=== PATIENT | male | born 1935 | race Caucasian/White ===

== ENCOUNTER 2016-08-06 14:56 | Emergency (ER) | payer MEDICARE, BC ==
[~2016-08-06] VITALS: Ht 177.8 cm; Wt 74.0 kg
[~2016-08-06 14:56] MED LIST: AMLO5 PO; ASPI81TA82 PO; AVOD0.5C PO; BENZ100 PO; DIOV80TA4 PO; GLIP5 PO; METF850T PO; NEXI10GR PO; PRAV10 PO; TUSSSUS PO; ZITH250T PO
[2016-08-06 15:02] VITALS: BP 147/67; PULSE 82; RESP 20; TEMP 98.7; O2SAT 100
[2016-08-06] MEDS ORDERED: NORV2.5T PO (15:20)
[2016-08-06] MEDS ORDERED: VITA500030 CHEW (15:25)
[2016-08-06] MEDS ORDERED: DIOV160T6 PO (15:25)
[2016-08-06] MEDS ORDERED: ASPI81CH37 CHEW (15:25)
[2016-08-06] MEDS ORDERED: NEXI40CA PO (15:25)
[2016-08-06] MEDS ORDERED: AVOD0.5C PO (15:25)
[2016-08-06] MEDS ORDERED: LANTUS2P SQ (15:25)
[2016-08-06] MEDS ORDERED: PRAV20TA2 PO (15:25)
[2016-08-06] MEDS ORDERED: [UNRECOGNIZED DRUG - CODE] (15:25)
--- NOTE | 2016-08-06 15:28 | PD ---
HPI Chief Complaint: Flank/Kidney Pain Time Seen by Provider: 15:14 Travel History International Travel<30 days: No Contact w/Intl Traveler<30days: No Traveled to known affect area: No History of Present Illness HPI He had some right flank pain yesterday evening. No injury or fever or vomiting or hematuria. He has history of chronic right sided stone that his urologist follows with CT scan on a yearly basis. Today he is asymptomatic but wanted to get it checked out. Having no pain now. Symptoms severity is mild. 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) Arthritis: Yes Asthma: No Autoimmune Disease: No Blood Disorders: No Heart Rhythm Problems: No Cancer: No Cardiovascular Problems: Yes (PERICARDITIS 2011) High Cholesterol: No Chest Pain: No Congestive Heart Failure: No COPD: No Cerebrovascular Accident: No Diabetes: Yes Patient Takes Glucophage: No Diminished Hearing: Yes (BILAT) Endocrine: Yes Gastrointestinal Disorders: Yes (ACID REFLUX ) GERD: Yes Glaucoma: No Genitourinary: Yes (ENLARGED PROSTATE; POST TURP; KIDNEY STONES ) Headaches: No Hepatitis: No Hiatal Hernia: No Hypertension: Yes Immune Disorder: No Implanted Vascular Access Dvce: Yes (TITANIUM LEFT KNEE) Kidney Stones: Yes Medical other: Yes (RIGHT RENAL ARTERY ANEURYSM; ACUTE GASTRITIS 2009) Musculoskeletal: Yes (OSTEOARTHRITIS; RIGHT HAMSTRING PAIN; RIGHT KNEE PAIN) Neurologic: Yes (OCCAS VERTIGO ) Psychiatric: No Reproductive: No Respiratory: No Immunizations Current: Yes Myocardial Infarction: No Renal Failure: No Seizures: No Sleep Apnea: Yes Thyroid Disease: No Ulcer: Yes PNEUMOCCOCAL Vaccine (Year): 2009 Past Surgical History Abdominal Surgery: Yes (APPY; CHOLECY ) AICD: No Appendectomy: Yes Body Medical Devices: LEFT KNEE Cardiac Surgery: No Cholecystectomy: Yes Ear Surgery: No Endocrine Surgery: No Eye Surgery: No Genitourinary Surgery: Yes (LITHOTRIPSY X 3; TURP 2002) Joint Replacement: Yes (LEFT KNEE) Neurologic Surgery: No Oral Surgery: Yes (PERIDONTAL SURGERY ) Pacemaker: No Thoracic Surgery: No Other Surgery: Yes Social History Alcohol Use: No Tobacco Use: No Substance Use: No Allergies-Medications (Allergen,Severity, Reaction): Coded Allergies: Lortab (Verified Allergy, Severe, Nausea/Vomiting, 08/06/16) NAUSEA/VOMITTING Percocet (Verified Allergy, Mild, 08/06/16) NAUSEA/VOMITTING Codeine (Verified Adverse Reaction, Intermediate, Nausea/Vomiting, 08/06/16) Reported Meds & Prescriptions Reported Meds & Active Scripts Active Reported E1000 (Vitamin E) 1,000 Unit Cap Vitamin D3 (Cholecalciferol) 5,000 Unit Chew 5,000 Units CHEW DAILY Lantus Inj (Insulin Glargine) 1,000 Unit/10 Ml Vial 17 Units SQ HS Aspirin Low Dose (Aspirin) 81 Mg Chew 81 Mg CHEW DAILY Pravastatin 20 Mg Tab 20 Mg PO DAILY Nexium (Esomeprazole DR) 40 Mg Capdr 40 Mg PO DAILY Avodart (Dutasteride) 0.5 Mg Cap 0.5 Mg PO DAILY Diovan (Valsartan) 160 Mg Tab 160 Mg PO DAILY Norvasc (Amlodipine Besylate) 2.5 Mg Tab 2.5 Mg PO DAILY Review of Systems General / Constitutional: No: Fever HENT: No: Headaches Cardiovascular: No: Chest Pain or Discomfort Respiratory: No: Cough Physical Exam Narrative GASTROINTESTINAL: Abdomen soft, non-tender, nondistended. Positive bowel sounds. No hepato-splenomegaly, or palpable masses. No guarding. SKIN: Inspection shows no rash or ulcers. Palpation shows no induration or nodules. Back: No midline or CVA tenderness NEUROLOGICAL: Awake and alert. Pupils are equal round and reactive. Motor and sensory grossly within normal limits. Five out of 5 muscle strength in all muscle groups. Normal speech. Data Data Last Documented VS Vital Signs Date Time Temp Pulse Resp B/P Pulse Ox O2 Delivery O2 Flow Rate FiO2 08/06/16 15:02 98.7 82 20 147/67 100 Orders Urinalysis - C+S If Indicated (08/06/16 15:21) Labs Laboratory Tests Test 08/06/16 15:33 Urine Collection Type CLEAN CATCH Urine Color YELLOW Urine Turbidity CLEAR Urine pH 7.0 Urine Specific [place] 1.024 Urine Protein NEG mg/dL Urine Glucose (UA) 1000 OR GREATER mg/dL Urine Ketones NEG mg/dL Urine Occult Blood TRACE Urine Nitrite NEG Urine Bilirubin NEG Urine Leukocyte Esterase NEG Urine WBC 0-2 /hpf Urine Squamous Epithelial 0-5 /hpf Cells Microscopic Urinalysis Comment CULT NOT INDICATED MDM Medical Decision Making Medical Screen Exam Complete: Yes Emergency Medical Condition: Yes Medical Record Reviewed: Yes Differential Diagnosis Sciatica, pyelonephritis, kidney stone Narrative Course I have reviewed the patient's electronic medical record. Urinalysis is normal except for glucose in the urine. Accu-Chek is 217 which the patient says is good for him Patient's vital signs and examination are normal. He is asymptomatic. I do not have clinical suspicion of emergent intra-abdominal process requiring emergent imaging. On recheck the patient remains asymptomatic. Recommend primary care follow-up Diagnosis Primary Impression: Right flank pain Additional Instructions: The patient was advised to follow up with their physician and return if they worsen. Med/Other Pt SpecificInfo: Other Disposition: 01 DISCHARGE HOME Condition: Stable Joss Cruz MD Aug 06, 2016 15:28
[2016-08-06 15:43] LABS: BLOOD, URINE TRACE (NEG); KETONE, URINE NEG (NEG); NITRITE,URINE NEG (NEG)
[2016-08-06 15:46] LABS: GLUCOSE,URINE 1000 OR GREATER mg/dL (NEG)
[2016-08-06 15:47] LABS: METHOD OF COLLECTION CLEAN CATCH; URINE COLOR YELLOW (YELLW/STRAW)
[2016-08-06 15:48] LABS: COMMENT (UR) CULT NOT INDICATED; CULTURE IF INDICATED CULT NOT INDICATED; SQUAMOUS EPITHELIAL CELL URINE 0-5 /hpf (0-5); WBC, URINE 0-2 /hpf (0-5)
== END 2016-08-06 16:24 | disposition home or self-care (01) ==
LOC: PHED 14:56
DX: R10.9 Unspecified abdominal pain (principal)
CPT/HCPCS: 81001; 99283

== ENCOUNTER 2016-08-07 16:20 | Inpatient (IN) | payer MEDICARE, BC ==
[2016-08-07] VITALS (9 sets, daily range): BP systolic 130–160; BP diastolic 52–75; PULSE 84–100; RESP 16–22; TEMP 97.9–98.9; O2SAT 95–98
[~2016-08-07] VITALS: Ht 179.1 cm; Wt 74.3 kg
[~2016-08-07 16:20] MED LIST changes: -AMLO5 PO; +ASPI81CH37 CHEW; -ASPI81TA82 PO; -BENZ100 PO; +DIOV160T6 PO; -DIOV80TA4 PO; -GLIP5 PO; +LANTUS2P SQ; -METF850T PO; -NEXI10GR PO; +NEXI40CA PO; +NORV2.5T PO; -PRAV10 PO; +PRAV20TA2 PO; -TUSSSUS PO; +VITA500030 CHEW; -ZITH250T PO; +[UNRECOGNIZED DRUG - CODE]
--- NOTE | 2016-08-07 16:55 | PD ---
HPI Chief Complaint: Flank/Kidney Pain Time Seen by Provider: 16:54 Travel History International Travel<30 days: No Contact w/Intl Traveler<30days: No Traveled to known affect area: No History of Present Illness HPI Patient 81-year-old male second presentation in 2 days for right flank pain. Patient states that yesterday when he came in he was in fairly significant pain at an 8 out of 10 he waited for an hour in the waiting room and by the time he was roomed his pain was feeling better. By the time he was sent home his pain returned and was 7 out of 10. She also been experiencing some mild nausea. He states he has a history of kidney stones on the right and his urologist who is in [place] and said that he doesn't want take out because he has history of renal artery aneurysm and doesn't want to disturb the aneurysm. Patient states his kidney stone pain usually feels 10 out of 10 and this is somewhat milder. Patient does have a history of straining kids coming to visit recently and may have been lifting them up so he doesn't remember. States it hurts him when he twists along his lumbar spine. Denies any dysuria or blood in the urine. Review of his records so that yesterday he was seen by Dr. Rosas who checked a urinalysis by time he was roomed was feeling better and deferred further workup at that time. 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) Arthritis: Yes Asthma: No Autoimmune Disease: No Blood Disorders: No Heart Rhythm Problems: No Cancer: No Cardiovascular Problems: Yes (PERICARDITIS 2011) High Cholesterol: No Chest Pain: No Congestive Heart Failure: No COPD: No Cerebrovascular Accident: No Diabetes: Yes Patient Takes Glucophage: No Diminished Hearing: Yes (BILAT) Endocrine: Yes Gastrointestinal Disorders: Yes (ACID REFLUX ) GERD: Yes Glaucoma: No Genitourinary: Yes (ENLARGED PROSTATE; POST TURP; KIDNEY STONES ) Headaches: No Hepatitis: No Hiatal Hernia: No Hypertension: Yes Immune Disorder: No Implanted Vascular Access Dvce: Yes (TITANIUM LEFT KNEE) Kidney Stones: Yes Medical other: Yes (RIGHT RENAL ARTERY ANEURYSM; ACUTE GASTRITIS 2009) Musculoskeletal: Yes (OSTEOARTHRITIS; RIGHT HAMSTRING PAIN; RIGHT KNEE PAIN) Neurologic: Yes (OCCAS VERTIGO ) Psychiatric: No Reproductive: No Respiratory: No Immunizations Current: Yes Myocardial Infarction: No Renal Failure: No Seizures: No Sleep Apnea: Yes Thyroid Disease: No Ulcer: Yes PNEUMOCCOCAL Vaccine (Year): 2009 Past Surgical History Abdominal Surgery: Yes (APPY; CHOLECY ) AICD: No Appendectomy: Yes Body Medical Devices: LEFT KNEE Cardiac Surgery: No Cholecystectomy: Yes Ear Surgery: No Endocrine Surgery: No Eye Surgery: No Genitourinary Surgery: Yes (LITHOTRIPSY X 3; TURP 2002) Joint Replacement: Yes (LEFT KNEE) Neurologic Surgery: No Oral Surgery: Yes (PERIDONTAL SURGERY ) Pacemaker: No Thoracic Surgery: No Other Surgery: Yes Social History Alcohol Use: No Tobacco Use: No Substance Use: No Allergies-Medications (Allergen,Severity, Reaction): Coded Allergies: Lortab (Verified Allergy, Severe, Nausea/Vomiting, 08/07/16) NAUSEA/VOMITTING Percocet (Verified Allergy, Mild, 08/07/16) NAUSEA/VOMITTING Codeine (Verified Adverse Reaction, Intermediate, Nausea/Vomiting, 08/07/16) Reported Meds & Prescriptions Reported Meds & Active Scripts Active Reported E1000 (Vitamin E) 1,000 Unit Cap Vitamin D3 (Cholecalciferol) 5,000 Unit Chew 5,000 Units CHEW DAILY Lantus Inj (Insulin Glargine) 1,000 Unit/10 Ml Vial 17 Units SQ HS Aspirin Low Dose (Aspirin) 81 Mg Chew 81 Mg CHEW DAILY Pravastatin 20 Mg Tab 20 Mg PO DAILY Nexium (Esomeprazole DR) 40 Mg Capdr 40 Mg PO DAILY Avodart (Dutasteride) 0.5 Mg Cap 0.5 Mg PO DAILY Diovan (Valsartan) 160 Mg Tab 160 Mg PO DAILY Norvasc (Amlodipine Besylate) 2.5 Mg Tab 2.5 Mg PO DAILY Review of Systems Except as stated in HPI: all other systems reviewed are Neg Physical Exam Narrative GENERAL: Well-developed well-nourished no apparent distress. Quite pleasant jovial and joking. SKIN: Warm and dry. HEAD: Atraumatic. Normocephalic. EYES: Pupils equal and round. No scleral icterus. No injection or drainage. ENT: No nasal bleeding or discharge. Mucous membranes pink and moist. NECK: Trachea midline. No JVD. CARDIOVASCULAR: Regular rate and rhythm. No murmur appreciated. RESPIRATORY: No accessory muscle use. Clear to auscultation. Breath sounds equal bilaterally. GASTROINTESTINAL: Abdomen soft, non-tender, nondistended. Hepatic and splenic margins not palpable. Positive CVA tenderness on the right, negative on the left. MUSCULOSKELETAL: No obvious deformities. No clubbing. No cyanosis. No edema. NEUROLOGICAL: Awake and alert. No obvious cranial nerve deficits. Motor grossly within normal limits. Normal speech. PSYCHIATRIC: Appropriate mood and affect; insight and judgment normal. Data Data Last Documented VS Vital Signs Date Time Temp Pulse Resp B/P Pulse Ox O2 Delivery O2 Flow Rate FiO2 08/07/16 19:15 91 20 130/60 95 08/07/16 16:27 97.9 Orders Complete Blood Count With Diff (08/07/16 16:52) Comprehensive Metabolic Panel (08/07/16 16:52) Lipase (08/07/16 16:52) Prothrombin Time / Inr (Pt) (08/07/16 16:52) Act Partial Throm Time (Ptt) (08/07/16 16:52) Urinalysis - C+S If Indicated (08/07/16 16:52) Ct Abd/Pel W/O Iv Contrast (08/07/16 16:52) Iv Access Insert/Monitor (08/07/16 16:52) Ecg Monitoring (08/07/16 16:52) Oximetry (08/07/16 16:52) Sodium Chloride 0.9% Flush (Ns Flush) (08/07/16 17:00) Ketorolac Inj (Toradol Inj) (08/07/16 17:00) Sodium Chlor 0.9% 1000 Ml Inj (Ns 1000 M (08/07/16 17:00) Ondansetron Inj (Zofran Inj) (08/07/16 17:00) Admit Order (Ed Use Only) (08/07/16 ) Labs Laboratory Tests Test 08/07/16 08/07/16 17:00 18:00 White Blood Count 10.6 TH/MM3 Red Blood Count 4.41 MIL/MM3 Hemoglobin 13.2 GM/DL Hematocrit 38.7 % Mean Corpuscular Volume 87.8 FL Mean Corpuscular Hemoglobin 29.9 PG Mean Corpuscular Hemoglobin 34.0 % Concent Red Cell Distribution Width 12.2 % Platelet Count 198 TH/MM3 Mean Platelet Volume 7.2 FL Neutrophils (%) (Auto) 78.9 % Lymphocytes (%) (Auto) 9.9 % Monocytes (%) (Auto) 8.3 % Eosinophils (%) (Auto) 1.5 % Basophils (%) (Auto) 1.4 % Neutrophils # (Auto) 8.3 TH/MM3 Lymphocytes # (Auto) 1.1 TH/MM3 Monocytes # (Auto) 0.9 TH/MM3 Eosinophils # (Auto) 0.2 TH/MM3 Basophils # (Auto) 0.1 TH/MM3 CBC Comment DIFF FINAL Differential Comment Prothrombin Time 10.1 SEC Prothromb Time International 0.9 RATIO Ratio Activated Partial 27.0 SEC Thromboplast Time Sodium Level 140 MEQ/L Potassium Level 4.4 MEQ/L Chloride Level 104 MEQ/L Carbon Dioxide Level 27.8 MEQ/L Anion Gap 8 MEQ/L Blood Urea Nitrogen 26 MG/DL Creatinine 2.30 MG/DL Estimat Glomerular Filtration 27 ML/MIN Rate Random Glucose 279 MG/DL Calcium Level 9.3 MG/DL Total Bilirubin 0.4 MG/DL Aspartate Amino Transf 12 U/L (AST/SGOT) Alanine Aminotransferase 17 U/L (ALT/SGPT) Alkaline Phosphatase 112 U/L Total Protein 7.7 GM/DL Albumin 3.5 GM/DL Lipase 93 U/L Urine Color STRAW Urine Turbidity CLEAR Urine pH 6.0 Urine Specific [place] 1.024 Urine Protein NEG mg/dL Urine Glucose (UA) 1000 OR GREATER mg/dL Urine Ketones TRACE mg/dL Urine Occult Blood SMALL Urine Nitrite NEG Urine Bilirubin NEG Urine Leukocyte Esterase NEG Urine RBC 0-3 /hpf Urine WBC 0-2 /hpf Urine Squamous Epithelial 0-5 /hpf Cells Microscopic Urinalysis Comment CULT NOT INDICATED MDM Medical Decision Making Medical Screen Exam Complete: Yes Emergency Medical Condition: Yes Differential Diagnosis Kidney stone, UTI, musculoskeletal strain, LUCERO, pyelonephritis Narrative Course Patient was roomed in the emergency room, he was given Toradol for pain. His pain was completely relieved on my reevaluation. Patient does state he had his CAT scan done through Dr. Coffey his urologist at [facility] recently. Our previous for comparison is 2009 which did not show a kidney stone displayed below. However his renal artery aneurysm is unchanged on today's exam. He does have new obstructing 7 mm kidney stone. He also has an acute kidney injury with a creatinine now 2.3 in February was 1.0. Last 24 hours Impressions Abdomen/Pelvis CT 08/07/16 1652 Signed Impressions: Service Date/Time: Sunday, August 07, 2016 17:09 - CONCLUSION: 1. Right- sided obstructive uropathy with moderate right hydronephrosis proximal to a 7 mm calculus in the proximal right ureter. Additional nonobstructing calculi in both kidneys. 2. Right renal artery aneurysm and cystic changes in the pancreatic head are similar to 2010 comparison. Bilateral renal cysts also similar in appearance. Eran Fisher MD Patient was discussed with Dr. Hammond who is on-call for urology suggested the patient could follow up outpatient versus inpatient for stent placement. Given he is fairly comfortable and without fever shared decision making was implored and the patient would like to stay in the hospital. This was relayed to Dr. Hammond who will be glad to see in the morning probably for stent placement. Diagnosis Primary Impression: Obstructive uropathy Additional Impression: Acute kidney injury Admitting Information Admitting Physician Requests: Observation Condition: Stable Niko Martinez MD Aug 07, 2016 16:55
[2016-08-07] MEDS ORDERED: KETOROLAC TROMETHAMINE 30 MG/ML (IVP) VIAL IV PUSH ONE (17:00)
[2016-08-07] MEDS ORDERED: SODIUM CHLORIDE 0.9% FLUSH 5 ML FLUSH IVF PRN (17:00)
[2016-08-07] MEDS ORDERED: ONDANSETRON HCL 4 MG/2 ML VIAL IV PUSH ONE (17:00)
[2016-08-07] MEDS ORDERED: SODIUM CHLOR 0.9% 1000 ML INJ 1,000 ML IV ONE (17:00)
[2016-08-07 17:09] LABS: AUTOMATED NEUTROPHIL # 8.3 TH/MM3 (1.8-7.7); BASOPHIL # 0.1 TH/MM3 (0-0.2); BASOPHIL % 1.4 % (0.0-2.0); EOSINOPHIL # 0.2 TH/MM3 (0-0.4); EOSINOPHIL % 1.5 % (0.0-4.0); HEMATOCRIT 38.7 % (39.0-51.0); LYMPH % 9.9 % (9.0-44.0); LYMPHOCYTE # 1.1 TH/MM3 (1.0-4.8); MEAN CELL VOLUME 87.8 FL (80.0-100.0); MEAN CORPUSCULAR HEMOGLOBIN 29.9 PG (27.0-34.0); MONO % 8.3 % (0.0-8.0); NEUT % 78.9 % (16.0-70.0); PLATELET COUNT 198 TH/MM3 (150-450); RED BLOOD COUNT 4.41 MIL/MM3 (4.50-5.90); RED CELL DISTRIBUTION WIDTH 12.2 % (11.6-17.2); WHITE BLOOD COUNT 10.6 TH/MM3 (4.0-11.0)
[2016-08-07 17:10] LABS: HEMO FLAGS DIFF FINAL
[2016-08-07 17:17] LABS: CHLORIDE 104 MEQ/L (98-107); POTASSIUM 4.4 MEQ/L (3.5-5.1); SODIUM (NA) 140 MEQ/L (136-145)
[2016-08-07 17:21] LABS: ANION GAP 8 MEQ/L (5-15); BICARBONATE 27.8 MEQ/L (21.0-32.0); BLOOD UREA NITROGEN 26 MG/DL (7-18)
[2016-08-07 17:22] LABS: INTERNATIONAL NORMALIZED RATIO 0.9 RATIO; PROTHROMBIN TIME - PATIENT 10.1 SEC (9.8-11.6)
[2016-08-07 17:24] LABS: ALT (GPT) 17 U/L (12-78); AST (GOT) 12 U/L (15-37); GLOMERULAR FILTRATION RATE 27 ML/MIN (>89)
[2016-08-07 17:26] LABS: TOTAL BILIRUBIN ADULT 0.4 MG/DL (0.2-1.0)
[2016-08-07 17:27] LABS: ALKALINE PHOSPHATASE 112 U/L (45-117)
--- NOTE | 2016-08-07 17:33 | RADHPO ---
EXAM DATE/TIME: 08/07/2016 17:09 [facility] COMPARISON: No previous studies available for comparison. INDICATIONS : Right flank pain. ORAL CONTRAST: No oral contrast ingested. RADIATION DOSE: 13.97 CTDIvol (mGy) MEDICAL HISTORY : Gastroesophageal reflux disease. Diabetes mellitus type 2. Hypertension. SURGICAL HISTORY : Appendectomy. Cholecystectomy.TURP. ENCOUNTER: Initial ACUITY: 2 days PAIN SCALE: 6/10 LOCATION: Right flank TECHNIQUE: Volumetric scanning of the abdomen and pelvis was performed. Using automated exposure control and ad justment of the mA and/or kV according to patient size, radiation dose was kept as low as reasonably achievable to obtain optimal diagnostic quality images. FINDINGS: There is an approximately 7 mm calculus in the proximal right ureter with mild to moderate right-side d hydronephrosis and obstructive uropathy with perinephric stranding. Multiple additional bilateral n on-obstructing calculi are present ranging in size from about 1-4 mm. There is a calcified right harish l artery aneurysm measuring up to around 2.2 x 1.7 cm, similar to 2010 exam. No acute findings in the liver, spleen and adrenal glands. There some cystic changes in the pancreati c head region which are stable since 2010 and measured up to about 2.8 x 1.7 cm. No bowel obstruction. No free fluid or free air. Prostate is enlarged. CONCLUSION: 1. Right-sided obstructive uropathy with moderate right hydronephrosis proximal to a 7 mm calculus in the proximal right ureter. Additional nonobstructing calculi in both kidneys. 2. Right renal artery aneurysm and cystic changes in the pancreatic head are similar to 2010 comparis on. Bilateral renal cysts also similar in appearance. Eran Fisher MD on August 07, 2016 at 17:26 Board Certified Radiologist. This report was verified electronically.
[2016-08-07 18:17] LABS: BLOOD, URINE SMALL (NEG); KETONE, URINE TRACE mg/dL (NEG); NITRITE,URINE NEG (NEG)
[2016-08-07 18:20] LABS: GLUCOSE,URINE 1000 OR GREATER mg/dL (NEG)
[2016-08-07 18:21] LABS: URINE COLOR STRAW (YELLW/STRAW)
[2016-08-07 18:22] LABS: COMMENT (UR) CULT NOT INDICATED; CULTURE IF INDICATED CULT NOT INDICATED; RBC, URINE 0-3 /hpf (0-3); SQUAMOUS EPITHELIAL CELL URINE 0-5 /hpf (0-5); WBC, URINE 0-2 /hpf (0-5)
[2016-08-07] MEDS ORDERED: GLUCAGON 1 MG/ML VIAL OTHER PRN (19:30)
[2016-08-07] MEDS ORDERED: SODIUM CHLORIDE 0.9% FLUSH 5 ML FLUSH FLUSH PRN (19:30)
[2016-08-07] MEDS ORDERED: NALOXONE HCL 0.4 MG/ML AMP IV PRN (19:30)
[2016-08-07] MEDS ORDERED: DEXTROSE 50% IN WATER 50 ML VIAL(D50) IV PUSH PRN (19:30)
[2016-08-07] MEDS: DEXT 5%-NACL 0.45% 1000 ML INJ 1,000 ML IV SCH (20:06)
[2016-08-07] MEDS: SODIUM CHLORIDE 0.9% FLUSH 5 ML FLUSH FLUSH SCH (21:00)
[2016-08-07] MEDS ORDERED: CALCIUM CARBONATE 500 MG CHEWABLE TAB CHEW PRN (22:45)
[2016-08-07] MEDS ORDERED: DOCUSATE SODIUM 100 MG CAP PO PRN (22:45)
[2016-08-07] MEDS ORDERED: DOCUSATE SODIUM 50 MG/SENNA 8.6 MG TAB PO PRN (22:45)
[2016-08-07] MEDS ORDERED: ONDANSETRON HCL 4 MG/2 ML VIAL IVP PRN (23:00)
[2016-08-08] VITALS (8 sets, daily range): BP systolic 108–158; BP diastolic 54–86; PULSE 72–95; RESP 16–21; TEMP 97.7–98.7; O2SAT 95–98
[2016-08-08] MEDS: cefTRIAXone INJ 1,000 MG in SODIUM CHLORIDE 0.9% INJ 100 ML IV SCH (00:40)
--- NOTE | 2016-08-08 03:03 | HHI.HP ---
[facility] Physician Stefan Olmedo MD Admission Diagnosis Obstructive uropathy, kidney stone, LUCERO Diagnoses: Chief Complaint: Kidney stone pain Travel History International Travel<30 Days: No Contact w/Intl Traveler <30 Da: No Traveled to Known Affected Are: No History of Present Illness History from patient and ER physician communication and review of medical records. Patient reported that he has been having kidney stone pains for the past several days. He stated he has had several kidney stones previously and he knew that this was the beginning of it. There for he had made ER visit twice in the past 3 days. Initially, he was discharged home with pain medications. However today, he presented to [facility] emergency room and workup there didn' t reveal 7 mm to her right renal stone together with obstructive uropathy. Apart from the right flank pain, patient's denies any fevers at home. Denies any urinary burning or pain on urination. Denies nausea/vomiting/diarrhea/blood in urine or stool. Review of Systems Constitutional: COMPLAINS OF: Fatigue, DENIES: Fever, Weight gain, Weight loss , Chills, Dizziness Respiratory: DENIES: Apneas, Cough, Snoring, Wheezing, Hemoptysis, Sputum production Cardiovascular: DENIES: Chest pain, Palpitations, Syncope, PND, Lower Extremity Edema Gastrointestinal: DENIES: Abdominal pain, Black stools, Bloody stools, Constipation, Diarrhea, Nausea, Vomiting Genitourinary: DENIES: Urinary frequency, Urinary incontinence, Urgency, Hematuria, Dysuria, Nocturia, Testicular Pain, Testicular Swelling Musculoskeletal: COMPLAINS OF: Joint pain, Stiffness, Joint Swelling, DENIES: Muscle aches, Back pain Neurologic: COMPLAINS OF: Abnormal gait, DENIES: Headache, Localized weakness , Paresthesias, Seizures, Speech Problems Past Family Social History Past Medical History Hypertension Diabetes History of renal stones BPH Past Surgical History TURP Lithotripsy and stent placements Cholecystectomy Appendectomy Bilateral rotator cuff replacement Left knee replacement Reported Medications Patient's medications listed in EMRreviewed Allergies: Coded Allergies: Lortab (Verified Allergy, Severe, Nausea/Vomiting, 08/07/16) NAUSEA/VOMITTING Percocet (Verified Allergy, Mild, 08/07/16) NAUSEA/VOMITTING Codeine (Verified Adverse Reaction, Intermediate, Nausea/Vomiting, 08/07/16) Family History Reports family history of diabetes in multiple members Social History Denies smoking/alcohol abuse/drug abuse. Lives with his . Physical Exam Vital Signs Vital Signs Date Time Temp Pulse Resp B/P Pulse Ox O2 Delivery O2 Flow Rate FiO2 08/08/16 00:17 97.9 74 21 158/77 97 08/07/16 22:47 84 08/07/16 22:31 98.9 84 22 160/72 98 08/07/16 21:15 93 18 151/64 97 Room Air 08/07/16 21:10 73 16 08/07/16 21:10 18 97 Room Air 08/07/16 20:15 93 20 130/52 96 08/07/16 19:15 91 20 130/60 95 08/07/16 17:59 100 20 144/65 98 08/07/16 17:08 98 08/07/16 16:27 97.9 100 16 151/75 98 Physical Exam GENERAL: This is a well-nourished, well-developed patient, in no apparent distress. SKIN: No rashes, ecchymoses or lesions. Cool and dry. HEAD: Atraumatic. Normocephalic. No temporal or scalp tenderness. EYES: No scleral icterus. No injection or drainage. ENT: Nose without bleeding, purulent drainage or septal hematoma. Airway patent. NECK: Trachea midline. No JVD or lymphadenopathy. Supple, nontender, no meningeal signs. CARDIOVASCULAR: Regular rate and rhythm without murmurs, gallops, or rubs. RESPIRATORY: Clear to auscultation. Breath sounds equal bilaterally. No wheezes , rales, or rhonchi. GASTROINTESTINAL: Abdomen soft, non-tender, nondistended. No hepato-splenomegaly , or palpable masses. No guarding. MUSCULOSKELETAL: Extremities without clubbing, cyanosis, or edema. No joint tenderness, effusion, or edema noted. No calf tenderness. NEUROLOGICAL: Awake and alert. Motor and sensory grossly within normal limits. Laboratory Laboratory Tests Test 08/07/16 08/07/16 17:00 18:00 White Blood Count 10.6 Red Blood Count 4.41 Hemoglobin 13.2 Hematocrit 38.7 Mean Corpuscular Volume 87.8 Mean Corpuscular Hemoglobin 29.9 Mean Corpuscular Hemoglobin 34.0 Concent Red Cell Distribution Width 12.2 Platelet Count 198 Mean Platelet Volume 7.2 Neutrophils (%) (Auto) 78.9 Lymphocytes (%) (Auto) 9.9 Monocytes (%) (Auto) 8.3 Eosinophils (%) (Auto) 1.5 Basophils (%) (Auto) 1.4 Neutrophils # (Auto) 8.3 Lymphocytes # (Auto) 1.1 Monocytes # (Auto) 0.9 Eosinophils # (Auto) 0.2 Basophils # (Auto) 0.1 CBC Comment DIFF FINAL Differential Comment Prothrombin Time 10.1 Prothromb Time International 0.9 Ratio Activated Partial 27.0 Thromboplast Time Sodium Level 140 Potassium Level 4.4 Chloride Level 104 Carbon Dioxide Level 27.8 Anion Gap 8 Blood Urea Nitrogen 26 Creatinine 2.30 Estimat Glomerular Filtration 27 Rate Random Glucose 279 Calcium Level 9.3 Total Bilirubin 0.4 Aspartate Amino Transf 12 (AST/SGOT) Alanine Aminotransferase 17 (ALT/SGPT) Alkaline Phosphatase 112 Total Protein 7.7 Albumin 3.5 Lipase 93 Urine Color STRAW Urine Turbidity CLEAR Urine pH 6.0 Urine Specific [place] 1.024 Urine Protein NEG Urine Glucose (UA) 1000 OR GREATER Urine Ketones TRACE Urine Occult Blood SMALL Urine Nitrite NEG Urine Bilirubin NEG Urine Leukocyte Esterase NEG Urine RBC 0-3 Urine WBC 0-2 Urine Squamous Epithelial 0-5 Cells Microscopic Urinalysis Comment CULT NOT INDICATED Result Diagram: 08/07/16 1700 08/07/16 1700 Imaging Last 48 hours Impressions Abdomen/Pelvis CT 08/07/16 1652 Signed Impressions: Service Date/Time: Sunday, August 07, 2016 17:09 - CONCLUSION: 1. Right- sided obstructive uropathy with moderate right hydronephrosis proximal to a 7 mm calculus in the proximal right ureter. Additional nonobstructing calculi in both kidneys. 2. Right renal artery aneurysm and cystic changes in the pancreatic head are similar to 2010 comparison. Bilateral renal cysts also similar in appearance. Eran Fisher MD Assessment and Plan Problem List: (1) Acute kidney injury ICD Code: N17.9 Status: Acute (2) Obstructive uropathy ICD Code: N13.9 Status: Acute (3) Right flank pain ICD Code: R10.9 Status: Acute Assessment and Plan Impression: 7 mm right renal calculus Moderate right hydronephrosis Acute renal failure Hypertension Diabetes History of renal stones BPH Plan: Patient's case was discussed with urologist on-call by ER physician. Nothing by mouth. IV hydration with D5 half normal saline at 84 cc per hour. Pain control. Start on levofloxacin 750 with grams IV every 24 hours. Possible cystoscopy with stent placement in a.m. Resume rest of his home medications. DVT prophylaxis with SCD. Discussed Condition With Patient, ER physician, patient's nurse Physician Certification 2 Midnight Certification Type: Admission for Inpatient Services Order for Inpatient Services The services are ordered in accordance with Medicare regulations or non- Medicare payer requirements, as applicable. In the case of services not specified as inpatient-only, they are appropriately provided as inpatient services in accordance with the 2-midnight benchmark. Estimated LOS (days): 2 days is the estimated time the patient will need to remain in the hospital, assuming treatment plan goals are met and no additional complications. Post-Hospital Plan: Home Yazmin Castellano MD Aug 08, 2016 03:03
[2016-08-08] MEDS: INSULIN ASPART SUPPLEMENTAL SCALE SQ SCH ×4 (06:20→20:34)
[2016-08-08] MEDS ORDERED: ASPIRIN 81 MG CHEW TAB CHEW SCH (09:00)
[2016-08-08] MEDS: FINASTERIDE 5 MG TAB PO SCH (10:17)
[2016-08-08] MEDS: amLODIPine BESYLATE 5 MG TAB PO SCH (10:17)
[2016-08-08] MEDS: PRAVASTATIN SOD 20 MG TAB PO SCH (10:17)
[2016-08-08] MEDS: SODIUM CHLORIDE 0.9% FLUSH 5 ML FLUSH FLUSH SCH ×2 (10:18→20:32)
[2016-08-08] MEDS: KETOROLAC TROMETHAMINE 30 MG/ML (IVP) VIAL IV PUSH PRN (10:18)
[2016-08-08] MEDS: PANTOPRAZOLE SOD 40 MG DELAYED RELEASE TAB PO SCH (10:18)
[2016-08-08] MEDS: DEXT 5%-NACL 0.45% 1000 ML INJ 1,000 ML IV SCH ×2 (10:19→19:20)
[2016-08-08 11:35] LABS: AUTOMATED NEUTROPHIL # 5.5 TH/MM3 (1.8-7.7); BASOPHIL % 0.4 % (0.0-2.0); EOSINOPHIL # 0.1 TH/MM3 (0-0.4); EOSINOPHIL % 1.5 % (0.0-4.0); HEMATOCRIT 35.6 % (39.0-51.0); HEMO FLAGS DIFF FINAL; LYMPH % 17.3 % (9.0-44.0); LYMPHOCYTE # 1.3 TH/MM3 (1.0-4.8); MEAN CELL VOLUME 87.9 FL (80.0-100.0); MEAN CORPUSCULAR HGB CONC 34.2 % (32.0-36.0); MONO % 9.4 % (0.0-8.0); NEUT % 71.4 % (16.0-70.0); PLATELET COUNT 162 TH/MM3 (150-450); RED BLOOD COUNT 4.05 MIL/MM3 (4.50-5.90); RED CELL DISTRIBUTION WIDTH 12.8 % (11.6-17.2); WHITE BLOOD COUNT 7.7 TH/MM3 (4.0-11.0)
[2016-08-08 11:52] LABS: BICARBONATE 27.6 MEQ/L (21.0-32.0); POTASSIUM 4.1 MEQ/L (3.5-5.1)
--- NOTE | 2016-08-08 13:41 | MB ---
cc: BO CAMPA MD, TERRENCE C. M.D. DATE OF CONSULTATION 08/08/2016 REASON FOR CONSULTATION 1. Right ureteral stone 2. Right flank pain HISTORY AND HOSPITAL COURSE The patient is an 81-year-old male with a significant history of kidney stones who presented to the ER yesterday with a two day history of right flank pain. They initially presented the day before last with pain on the right side 8/10. He initially waited in the waiting room for over an hour, but by that time his pain had improved and he went home. However, he came back the next day as his pain continued to be an 8/10 at its worse and sharp and stabbing on the right side. He said this was similar to the kidney stone pain he has had in the past and has been seen and treated by Dr. Arroyo. He has been dealing with kidney stones since the age of 22 requiring multiple lithotripsies and ureteroscopies in the past. However, yesterday we came back with his pain, he also had some associate mild nausea. CT of the abdomen and pelvis without contrast was done which showed an 8 mm stone in his proximal right ureter with mild hydronephrosis. He was subsequently admitted for pain control and urology was consulted. He status his pain is usually a 10/10, but this was somewhat milder during this episode. On admission, he was found to have an elevated creatinine of up to 2.3 where his baseline creatinine in February was 1.1. He denies any dysuria or hematuria, fevers or chills at this time. His nausea has also improved. He states that Dr. Arroyo has been following the stone in his right kidney, but had not been treated because of his known right renal artery aneurysm. Denies a history of genitourinary malignancies as well. PAST MEDICAL HISTORY Includes: 1. Pericarditis 2. Right renal artery aneurysm 3. Gastroesophageal reflux disease 4. History of BPH status post TURP 5. Osteoarthritis PAST SURGICAL HISTORY Includes: 1. Appendectomy 2. Cholecystectomy 3. Lithotripsy x3 4. TURP 2002 5. Total left knee replacement 6. Left shoulder rotator cuff repair 2000 7. Diabetes FAMILY HISTORY Denies history of genitourinary malignancy or nephrolithiasis. SOCIAL HISTORY Denies smoking, alcohol, or illicit drugs. Reported caffeine use. MEDICATIONS Include: 1. Dutasteride 0.5 mg p.o. daily 2. Diovan 160 mg p.o. daily 3. Norvasc 2.5 mg p.o. daily 4. Pravastatin 20 mg p.o. daily 5. Lantus 17 units subcutaneously 6. Aspirin 81 mg p.o. daily 7. Nexium 40 mg p.o. daily 8. Vitamin E 1000 units daily REVIEW OF SYSTEMS See HPI, otherwise all systems reviewed otherwise are negative. PHYSICAL EXAMINATION VITAL SIGNS: Temperature 98.5, pulse 72 respiratory rate 18, BP 117/86, sat 97% on room air. GENERAL: He is alert and oriented x3, pleasant, cooperative and appears his stated age. HEAD: Normocephalic, atraumatic. EYES, EARS, NOSE AND THROAT: No scleral icterus. Extraocular muscles intact. He is [id number]. NECK: Supple. Trachea is midline. No JVD. LUNGS: Clear to auscultation bilaterally. No wheezes or rales or rhonchi. HEART: Regular rhythm. No gallops, rubs or murmurs. ABDOMEN: Soft, nontender with positive bowel sounds. GENITOURINARY: He has no CVA tenderness bilaterally. His penis is circumcised. Testes are descended bilaterally, normal in size and consistency without mass. RECTAL: Exam is not indicated. EXTREMITIES: Nontender. No clubbing, cyanosis, edema. SKIN: No ulcers or rashes. PSYCH: Normal affect. NEUROLOGIC: Cranial nerves II-XII intact. Strength 5/5 in all four extremities. LABS Labs show a white count of 7.7, hemoglobin 12.2, hematocrit 35.6, platelet count 162. Sodium 139, potassium 4.1, chloride 104, bicarb 27.6, BUN 23, creatinine 2.16, glucose 185. His urine was negative. IMAGING STUDIES CT of the abdomen and pelvis without contrast was reviewed. Images reviewed, agree with radiologist's report. He has an 8 mm calculus in his proximal right ureter with mild right hydronephrosis. He also has a right renal artery aneurysm that is stable in size. ASSESSMENT AND PLAN The patient is an 81-year-old male with a significant history of kidney stones who is admitted with right flank pain and was found to have an obstructing right 8 mm stone with acute renal failure. PLAN We will go ahead and make the patient n.p.o. after midnight. We will scheduled him for cystoscopy, right retrograde pyelogram and stent placement tomorrow. I also discussed with him the possibility that due to the large size of the stone, we may not be able to place a stent and may require nephrostomy tube by the radiology department. All risks, benefits and alternatives were explained to him. All questions were answered. He agreed to proceed. He also understands that having a stent placed just temporarily treats his pain and will need to have the stone treated at a later date and subsequent stent removal. He understands this as well. MD TYLOR Jason/STANTON /1:01 PM /1:18 PM
[2016-08-09 00:04] VITALS: BP 138/63; PULSE 75; RESP 20; TEMP 98.4; O2SAT 96
[2016-08-09] MEDS: cefTRIAXone INJ 1,000 MG in SODIUM CHLORIDE 0.9% INJ 100 ML IV SCH (00:07)
[2016-08-09] MEDS: KETOROLAC TROMETHAMINE 30 MG/ML (IVP) VIAL IV PUSH PRN (00:21)
[2016-08-09 04:07] VITALS: BP 127/59; PULSE 71; RESP 20; TEMP 98.4; O2SAT 96
--- NOTE | 2016-08-09 05:36 | EKG ---
Date Performed: 08/08/2016 Time Performed: 16:10:20 PTAGE: 81 years EKG: Sinus rhythm NORMAL ECG NO PREVIOUS TRACING DOCTOR: Tab Bang Interpretating Date/Time 08/09/2016 05:34:55
[2016-08-09] MEDS: INSULIN ASPART SUPPLEMENTAL SCALE SQ SCH ×4 (07:30→21:05)
[2016-08-09 08:00] VITALS: BP 147/84; PULSE 68; PULSE 70; RESP 18; TEMP 97.5; O2SAT 97
[2016-08-09 09:55] LABS: BICARBONATE 25.8 MEQ/L (21.0-32.0); MAGNESIUM 1.9 MG/DL (1.5-2.5); POTASSIUM 4.1 MEQ/L (3.5-5.1)
--- NOTE | 2016-08-09 10:27 | HHI.PR ---
Subjective Remarks Follow up for ureterolithiasis/obstructive uropathy. The patient reports his pain is currently controlled with pain medications. He complains of constipation , requesting medications. Denies any nausea/vomiting. Denies fevers or chills. Awaiting to go to OR this afternoon. Objective Vitals Vital Signs Date Time Temp Pulse Resp B/P Pulse Ox O2 Delivery O2 Flow Rate FiO2 08/09/16 08:00 97.5 68 18 147/84 97 08/09/16 04:07 98.4 71 20 127/59 96 08/09/16 00:56 16 08/09/16 00:04 98.4 75 20 138/63 96 08/08/16 21:16 97.7 95 20 147/70 98 08/08/16 20:30 94 08/08/16 15:45 97.9 76 16 108/54 95 08/08/16 12:17 98.5 72 18 117/86 97 Result Diagram: 08/08/16 1050 08/09/16 0855 Imaging Last Impressions Abdomen/Pelvis CT 08/07/16 1652 Signed Impressions: Service Date/Time: Sunday, August 07, 2016 17:09 - CONCLUSION: 1. Right- sided obstructive uropathy with moderate right hydronephrosis proximal to a 7 mm calculus in the proximal right ureter. Additional nonobstructing calculi in both kidneys. 2. Right renal artery aneurysm and cystic changes in the pancreatic head are similar to 2010 comparison. Bilateral renal cysts also similar in appearance. Eran Fisher MD Objective Remarks GENERAL: Well-nourished, well-developed elderly male patient in [facility]. SKIN: Warm and dry. No rash. HEAD: Normocephalic. Atraumatic. NECK: Supple. Trachea midline. CARDIOVASCULAR: Regular rate and rhythm. S1, S2 noted. No murmur appreciated. RESPIRATORY: No accessory muscle use. Clear to auscultation. Breath sounds equal bilaterally. GASTROINTESTINAL: Abdomen soft, non-tender, nondistended. Normoactive bowel sounds x4. MUSCULOSKELETAL: No obvious deformities. Extremities without clubbing, cyanosis , or edema. NEUROLOGICAL: Awake and alert. No obvious cranial nerve deficits. Motor grossly within normal limits. Normal speech. PSYCHIATRIC: Appropriate mood and affect; insight and judgment normal. Medications and IVs Current Medications Medications (Trade) Dose Ordered Sig/Adrienne Route Start Time Stop Time Status Last Admin (NS Flush) 2 ml UNSCH PRN FLUSH 08/07/16 19:30 (NS Flush) 2 ml BID FLUSH 08/07/16 21:00 08/08/16 10:18 (Zofran Inj) 4 mg Q6H PRN IVP 08/07/16 23:00 (Narcan Inj) 0.4 mg UNSCH PRN IV 08/07/16 19:30 (D50w (Vial) Inj) 25 ml UNSCH PRN IV PUSH 08/07/16 19:30 Glucagon 1 mg 1 mg UNSCH PRN OTHER 08/07/16 19:30 (D5W-08/06 NS 1000 ml Inj) 1,000 ml @ 84 mls/hr [id number] IV 08/07/16 19:30 08/08/16 10:19 (Toradol Inj) 15 mg Q6H PRN IV PUSH 08/07/16 20:00 08/11/16 19:59 08/09/16 00:21 (Norvasc) 2.5 mg DAILY PO 08/08/16 09:00 08/08/16 10:17 (Pravachol) 20 mg DAILY PO 08/08/16 09:00 08/08/16 10:17 (Proscar) 5 mg DAILY PO 08/08/16 09:00 08/08/16 10:17 (Protonix) 40 mg DAILY PO 08/08/16 09:00 08/08/16 10:18 (Colace) 100 mg BID PRN PO 08/07/16 22:45 Calcium Carbonate 1000 mg 1,000 mg TID PRN CHEW 08/07/16 22:45 (Rocephin Inj/NS Inj) 100 ml @ 200 mls/hr Q24H IV 08/08/16 00:00 08/09/16 00:07 (Naz-Colace) 2 tab BID PO 08/09/16 09:00 Urinary Catheter: No Vascular Central Line Catheter: No A/P Problem List: (1) Acute kidney injury ICD Code: N17.9 Status: Acute (2) Obstructive uropathy ICD Code: N13.9 Status: Acute (3) Right flank pain ICD Code: R10.9 Status: Acute Assessment and Plan 81-year-old male with hx of renal stones, HTN, DM, BPH, presents with: Ureterolithiasis/Obstructive Uropathy with Moderate Hydronephrosis: Abd/pelvis CT images reviewed by me, showed right sided obstructive uropathy with moderate right hydronephrosis proximal to a 7mm calculus in proximal right ureter. Given IV Rocephin however UA unremarkable, will d/c abx. Consulted urology, Dr. Hammond planning for cystoscopy, right retrograde pyelogram and stent placement today in OR. Continue pain control with IV Toradol prn. Acute renal failure: Cr 2.3 upon arrival, previously 1.06 in February2016. Likely secondary to above. Continue IVF. Continue to monitor BMP, slight worsening today. Hypertension: chronic, continue patient's Norvasc. Holding Valsartan with LUCERO as above. Monitor BP, adjust antihypertensives as needed. Diabetes: Chronic, holding patient's Lantus 17u sq hs while NPO. Monitor Accu- Cheks and cover with SSI. BPH: Chronic, continue patient's dutasteride. Constipation: start on Naz-Colace 2tabs po bid. Monitor for BM. DVT prophylaxis with SCD. Written by Radha Hamlin, acting as scribe for Dr. Buck on 08/09/16 at 08:20. The documentation accurately reflects the work performed [id number] by me on at 0820 Discharge Planning Discharge pending clearance by urology, however also still with LUCERO, would benefit from additional stay overnight for IVF after stent placement. Radha Hamlin PA-C Aug 09, 2016 10:26 Nash Buck MD Aug 09, 2016 16:37
[2016-08-09] MEDS: SODIUM CHLORIDE 0.9% FLUSH 5 ML FLUSH FLUSH SCH ×2 (10:57→20:18)
[2016-08-09] MEDS: DEXT 5%-NACL 0.45% 1000 ML INJ 1,000 ML IV SCH ×2 (10:57→16:00)
[2016-08-09] MEDS: FINASTERIDE 5 MG TAB PO SCH (10:58)
[2016-08-09] MEDS: amLODIPine BESYLATE 5 MG TAB PO SCH (10:59)
[2016-08-09] MEDS: DOCUSATE SODIUM 50 MG/SENNA 8.6 MG TAB PO SCH ×2 (10:59→20:24)
[2016-08-09] MEDS: PANTOPRAZOLE SOD 40 MG DELAYED RELEASE TAB PO SCH (10:59)
[2016-08-09] MEDS: PRAVASTATIN SOD 20 MG TAB PO SCH (11:00)
[2016-08-09] MEDS ORDERED: ONDANSETRON HCL 4 MG/2 ML VIAL IV PUSH ONE (12:00)
[2016-08-09] MEDS ORDERED: PROPOFOL 200 MG/20 ML AMP IV ONE (12:00)
[2016-08-09 12:33] VITALS: BP 141/64; PULSE 68; RESP 18; TEMP 97.5; O2SAT 98
[2016-08-09] MEDS ORDERED: FAMOTIDINE 20 MG/2 ML VIAL ONE ×2 (14:29→14:41)
[2016-08-09] MEDS ORDERED: fentaNYL CITRATE 250 MCG/5 ML AMP ONE (14:41)
[2016-08-09] MEDS ORDERED: IOHEXOL 300 MG/ML 50 ML BTL (for RAD DIAG) ONE (15:06)
--- NOTE | 2016-08-09 15:15 | PD.OP ---
Operative Report Date of Surgery: Aug 09, 2016 Preoperative Diagnosis: (1) Obstructive uropathy (2) Right flank pain (3) Right ureteral stone Postoperative Diagnosis: Procedure: cystoscopy, right retrograde pyelogram, right ureteral stent insertion Surgeon: Josef Hammond Human Resource Internship(s): N/A Operation and Findings: See dictated report. F/U with Dr. Arroyo for treatment of stone. Josef Hammond MD Aug 09, 2016 15:15
[2016-08-09] MEDS ORDERED: DO NOT ADM ANY ANTICOAGULANT DRUGS XX PRN (16:00)
[2016-08-09] MEDS ORDERED: MORPHINE SULFATE 4 MG/ML INJ IV PUSH PRN (16:00)
[2016-08-09] MEDS ORDERED: ACETAMINOPHEN 500 MG CPLT PO PRN (16:00)
--- NOTE | 2016-08-09 19:46 | MP ---
cc: BO HAMMOND MD DATE OF SURGERY: 08/09/2016. PREOPERATIVE DIAGNOSIS: 1. Right proximal ureteral stone with mild hydronephrosis. 2. Right flank pain. 3. Acute on chronic renal disease. POSTOPERATIVE DIAGNOSIS: 1. Right proximal ureteral stone with mild hydronephrosis. 2. Right flank pain. 3. Acute on chronic renal disease. OPERATIVE PROCEDURE PERFORMED: 1. Cystourethroscopy. 2. Right retrograde pyelogram. 3. Insertion of right ureteral stent. SURGEON: Bo Hammond MD. ANESTHESIA: General. COMPLICATIONS: None. DRAINS: A 6 x 26 double-J right ureteral stent. SPECIMENS: None. ESTIMATED BLOOD LOSS: Minimal. DISPOSITION: Stable to recovery. INDICATIONS FOR THE PROCEDURE: The patient is an 81-year-old male with a significant history of kidney stones with multiple lithotripsies in the past who presented to the [place] [facility] with complaints of right flank pain. The patient was found to have an 8 mm proximal right ureteral stone with mild hydronephrosis. She was also found to have an elevated creatinine of 2.4 from his baseline of 1.1. Treatment options were discussed including a trial of passage versus definitive therapy and he elected to proceed with definitive therapy. I explained to him that due to the size of the stone and assuming the stone may be very difficult for definitive therapy and he may just require a temporary stent to treat his symptoms and have the stone treated as an outpatient. He understood these risks. All questions were answered and he elected to proceed. Informed consent was obtained. DESCRIPTION OF THE PROCEDURE IN DETAIL: The patient was properly identified and brought back to the cystoscopy suite where he was laid supine on the cystoscopy table. The appropriate time out was performed under the direction of anesthesiology. The patient was then induced under general anesthetic. The patient had been receiving Rocephin 1 gram IV; therefore, preoperative antibiotics were not indicated. He was placed in the dorsal lithotomy position and prepped and draped in the normal sterile surgical fashion. A rigid cystoscope was then carefully inserted into his bladder per urethra without any difficulty. At this time, a carnes cystoscopy was done which showed no evidence of any bladder tumors, stones, diverticula. His bladder was mildly trabeculated. Both ureteral orifices were identified and appeared in normal anatomical location. A 5-Chinese open-ended ureteral catheter was then gently inserted just inside his right ureteral orifice. A right retrograde pyelogram was performed which showed proximal hydroureter and significant hydronephrosis secondary to the corresponding filling defect seen on CT and proximal ureter. There was some blunting of the calyces as well. Through the ureteral catheter, a guidewire was then passed up into the right kidney without any difficulty. The catheter was then removed leaving the guidewire in place in the renal pelvis. At this time, a 6 x 26 double-J stent was then back-loaded over the wire and up into the right kidney without difficulty. The wire was removed and good proximal curl was seen in the upper pole of the right kidney as well in the bladder. The bladder was then drained. This concluded procedure. The patient was extubated and sent to recovery in stable condition to be transferred back to the floor for routine postoperative care. He will follow up with Dr. Arroyo as an outpatient for definitive treatment of the stone. MD TYLOR Jason/CHARLENE /3:18 PM /7:32 PM ALICIA
[2016-08-09 20:00] VITALS: BP 151/67; PULSE 84; RESP 18; TEMP 98.1; O2SAT 98
[2016-08-09] MEDS: TAMSULOSIN HCL 0.4 MG CAP PO SCH (20:18)
[2016-08-09 21:05] VITALS: PULSE 72
[2016-08-10] VITALS: BP 161/72; PULSE 74; RESP 18; TEMP 97.2; O2SAT 98
[2016-08-10 04:00] VITALS: BP 144/65; PULSE 74; RESP 16; TEMP 97.4; O2SAT 97
[2016-08-10] MEDS: DEXT 5%-NACL 0.45% 1000 ML INJ 1,000 ML IV SCH (04:05)
[2016-08-10 04:52] LABS: AUTOMATED NEUTROPHIL # 4.1 TH/MM3 (1.8-7.7); BASOPHIL % 0.4 % (0.0-2.0); EOSINOPHIL # 0.2 TH/MM3 (0-0.4); EOSINOPHIL % 2.6 % (0.0-4.0); HEMATOCRIT 31.3 % (39.0-51.0); HEMO FLAGS DIFF FINAL; LYMPH % 20.6 % (9.0-44.0); LYMPHOCYTE # 1.3 TH/MM3 (1.0-4.8); MEAN CELL VOLUME 86.7 FL (80.0-100.0); MEAN CORPUSCULAR HEMOGLOBIN 30.9 PG (27.0-34.0); MEAN CORPUSCULAR HGB CONC 35.7 % (32.0-36.0); MONO % 9.7 % (0.0-8.0); NEUT % 66.7 % (16.0-70.0); PLATELET COUNT 146 TH/MM3 (150-450); RED BLOOD COUNT 3.61 MIL/MM3 (4.50-5.90); RED CELL DISTRIBUTION WIDTH 12.5 % (11.6-17.2); WHITE BLOOD COUNT 6.1 TH/MM3 (4.0-11.0)
[2016-08-10 05:17] LABS: MAGNESIUM 1.7 MG/DL (1.5-2.5); POTASSIUM 3.9 MEQ/L (3.5-5.1)
[2016-08-10] MEDS: INSULIN ASPART SUPPLEMENTAL SCALE SQ SCH ×2 (05:30→11:18)
[2016-08-10 08:00] VITALS: BP 160/69; PULSE 83; RESP 18; TEMP 96.8; O2SAT 100
[2016-08-10] MEDS: PRAVASTATIN SOD 20 MG TAB PO SCH (08:03)
[2016-08-10] MEDS: TAMSULOSIN HCL 0.4 MG CAP PO SCH (08:03)
[2016-08-10] MEDS: amLODIPine BESYLATE 5 MG TAB PO SCH (08:03)
[2016-08-10] MEDS: PANTOPRAZOLE SOD 40 MG DELAYED RELEASE TAB PO SCH (08:03)
[2016-08-10] MEDS: SODIUM CHLORIDE 0.9% FLUSH 5 ML FLUSH FLUSH SCH (08:03)
[2016-08-10] MEDS: DOCUSATE SODIUM 50 MG/SENNA 8.6 MG TAB PO SCH (08:03)
[2016-08-10] MEDS: FINASTERIDE 5 MG TAB PO SCH (08:03)
[2016-08-10 10:00] VITALS: O2SAT 94
--- NOTE | 2016-08-10 11:39 | HHI.PR ---
Subjective Remarks Follow-up obstructive uropathy. He is doing okay voiding ortiz-colored urine without difficulty. He wants to go home. Discussed with RN and Objective Vitals Vital Signs Date Time Temp Pulse Resp B/P Pulse Ox O2 Delivery O2 Flow Rate FiO2 08/10/16 08:00 96.8 83 18 160/69 100 08/10/16 04:00 97.4 74 16 144/65 97 08/10/16 00:00 97.2 74 18 161/72 98 08/09/16 21:05 72 08/09/16 20:00 98.1 84 18 151/67 98 08/09/16 18:30 97.8 82 14 147/65 95 Room Air 08/09/16 18:00 70 14 155/67 95 Room Air 08/09/16 17:00 67 14 153/72 94 Room Air 08/09/16 16:00 67 14 149/69 97 Room Air 08/09/16 15:45 69 14 152/70 97 Nasal Cannula 2 08/09/16 15:29 97.8 82 14 121/75 98 Nasal Cannula 2 08/09/16 12:33 97.5 68 18 141/64 98 I/O 08/09/16 08/09/16 08/09/16 08/10/16 08/10/16 08/10/16 07:00 15:00 23:00 07:00 15:00 23:00 Intake Total 1192 ml 583 ml Output Total 1360 ml 300 ml Balance -168 ml 283 ml Intake Oral 360 ml IV Total 332 ml 583 ml Other 500 ml Output Urine Total 1350 ml 300 ml Estimated Blood Loss 10 ml # Bowel Movements 0 Result Diagram: 08/10/16 0427 08/10/16 0427 Objective Remarks GENERAL: This is a well-nourished, well-developed patient, in no apparent distress. CARDIOVASCULAR: Regular rate and rhythm without murmurs, gallops, or rubs. RESPIRATORY: Clear to auscultation. Breath sounds equal bilaterally. No wheezes , rales, or rhonchi. GASTROINTESTINAL: Abdomen soft, non-tender, nondistended. Normal active bowel sounds MUSCULOSKELETAL: Extremities without clubbing, cyanosis, or edema. NEURO: Alert & Oriented x4 to person, place, time, situation. Moves all ext x4 Procedures OPERATIVE PROCEDURE PERFORMED: 1. Cystourethroscopy. 2. Right retrograde pyelogram. 3. Insertion of right ureteral stent. A/P Problem List: (1) Acute kidney injury ICD Code: N17.9 Status: Acute (2) Obstructive uropathy ICD Code: N13.9 Status: Acute (3) Right flank pain ICD Code: R10.9 Status: Acute Assessment and Plan 81-year-old male with hx of renal stones, HTN, DM, BPH, presents with: Ureterolithiasis/Obstructive Uropathy with Moderate Hydronephrosis: Abd/pelvis CT images reviewed by me, showed right sided obstructive uropathy with moderate right hydronephrosis proximal to a 7mm calculus in proximal right ureter. Given IV Rocephin however UA unremarkable, will d/c abx. Consulted urology, Dr. Hammond s/p Cystourethroscopy, Right retrograde pyelogram and Insertion of right ureteral stent. Continue pain control with IV Toradol prn. Stable Acute renal failure: Cr 2.3 upon arrival, previously 1.06 in February2016. Likely secondary to above. Continue IVF. Continue to monitor BMP, improving creatinine down to 1.5 Hypertension: chronic, continue patient's Norvasc. Restart Valsartan with improving LUCERO as above. Monitor BP, adjust antihypertensives as needed. Diabetes: Uncontrolled we will restart Lantus 17u sq hs Monitor Accu-Cheks and cover with SSI. BPH: Chronic, continue patient's dutasteride. Constipation: Continue Naz-Colace 2tabs po bid. Monitor for BM. DVT prophylaxis with SCD. Discharge Planning Possible discharge today Nash Bukc MD Aug 10, 2016 11:39
[2016-08-10] MEDS ORDERED: TAMS5CAP PO (11:46)
--- NOTE | 2016-08-10 11:47 | HHI.DCPOC ---
Discharge Care Plan Diagnosis: (1) Obstructive uropathy (2) Acute kidney injury (3) Right flank pain (4) Right ureteral stone Your Health Problems Are: Difficulty with ADL Exercise Tolerance Chronic Pain Goals to Promote Your Health * To prevent worsening of your condition and complications * To maintain your health at the optimal level Directions to Meet Your Goals Take your medications as prescribed Follow your dietary instruction Follow activity as directed Keep your appointments as scheduled Take your immunizations and boosters as scheduled If your symptoms worsen call your PCP, if no PCP go to Urgent Care Center or Emergency Room Smoking is Dangerous to Your Health. Avoid second hand smoke Call the 24-hour hour crisis hotline for domestic abuse at Nash Buck MD Aug 10, 2016 11:47
--- NOTE | 2016-08-10 11:49 | HHI.DS ---
cc: Stefan Olmedo MD Discharge Summary Admission Date Aug 07, 2016 at 19:18 Discharge Date: Aug 10, 2016 Admitting Diagnosis Obstructive uropathy, kidney stone, LUCERO (1) Acute kidney injury ICD Code: N17.9 Diagnosis: Principal (2) Obstructive uropathy ICD Code: N13.9 Diagnosis: Principal (3) Right flank pain ICD Code: R10.9 Diagnosis: Principal Procedures OPERATIVE PROCEDURE PERFORMED: 1. Cystourethroscopy. 2. Right retrograde pyelogram. 3. Insertion of right ureteral stent. Brief History - From Admission History from patient and ER physician communication and review of medical records. Patient reported that he has been having kidney stone pains for the past several days. He stated he has had several kidney stones previously and he knew that this was the beginning of it. There for he had made ER visit twice in the past 3 days. Initially, he was discharged home with pain medications. However today, he presented to [facility] emergency room and workup there didn' t reveal 7 mm to her right renal stone together with obstructive uropathy. Apart from the right flank pain, patient's denies any fevers at home. Denies any urinary burning or pain on urination. Denies nausea/vomiting/diarrhea/blood in urine or stool. CBC/BMP: 08/10/16 0427 08/10/16 0427 Significant Findings Laboratory Tests Test 08/07/16 08/07/16 08/08/16 08/09/16 17:00 18:00 10:50 08:55 Red Blood Count 4.41 MIL/MM3 4.05 MIL/MM3 (4.50-5.90) (4.50-5.90) Hematocrit 38.7 % 35.6 % (39.0-51.0) (39.0-51.0) Neutrophils (%) (Auto) 78.9 % 71.4 % (16.0-70.0) (16.0-70.0) Monocytes (%) (Auto) 8.3 % (0.0-8.0) 9.4 % (0.0-8.0) Neutrophils # (Auto) 8.3 TH/MM3 (1.8-7.7) Blood Urea Nitrogen 26 MG/DL (7-18) 23 MG/DL (7-18) 27 MG/DL (7-18) Creatinine 2.30 MG/DL 2.16 MG/DL 2.48 MG/DL (0.60-1.30) (0.60-1.30) (0.60-1.30) Estimat Glomerular Filtration 27 ML/MIN (>89) 29 ML/MIN (>89) 25 ML/MIN (>89) Rate Random Glucose 279 MG/DL 185 MG/DL 228 MG/DL (74-106) (74-106) (74-106) Aspartate Amino Transf 12 U/L (15-37) (AST/SGOT) Urine Glucose (UA) 1000 OR GREATER mg/dL (NEG) Urine Ketones TRACE mg/dL (NEG) Urine Occult Blood SMALL (NEG) Hemoglobin 12.2 GM/DL (13.0-17.0) Test 08/10/16 04:27 Red Blood Count 3.61 MIL/MM3 (4.50-5.90) Hemoglobin 11.2 GM/DL (13.0-17.0) Hematocrit 31.3 % (39.0-51.0) Platelet Count 146 TH/MM3 (150-450) Monocytes (%) (Auto) 9.7 % (0.0-8.0) Blood Urea Nitrogen 21 MG/DL (7-18) Creatinine 1.55 MG/DL (0.60-1.30) Estimat Glomerular Filtration 43 ML/MIN (>89) Rate Random Glucose 127 MG/DL (74-106) Imaging Last Impressions Abdomen/Pelvis CT 08/07/16 1652 Signed Impressions: Service Date/Time: Sunday, August 07, 2016 17:09 - CONCLUSION: 1. Right- sided obstructive uropathy with moderate right hydronephrosis proximal to a 7 mm calculus in the proximal right ureter. Additional nonobstructing calculi in both kidneys. 2. Right renal artery aneurysm and cystic changes in the pancreatic head are similar to 2010 comparison. Bilateral renal cysts also similar in appearance. Eran Fisher MD PE at Discharge GENERAL: This is a well-nourished, well-developed patient, in no apparent distress. CARDIOVASCULAR: Regular rate and rhythm without murmurs, gallops, or rubs. RESPIRATORY: Clear to auscultation. Breath sounds equal bilaterally. No wheezes , rales, or rhonchi. GASTROINTESTINAL: Abdomen soft, non-tender, nondistended. Normal active bowel sounds MUSCULOSKELETAL: Extremities without clubbing, cyanosis, or edema. NEURO: Alert & Oriented x4 to person, place, time, situation. Moves all ext x4 Hospital Course 81-year-old male with hx of renal stones, HTN, DM, BPH, presents with: Ureterolithiasis/Obstructive Uropathy with Moderate Hydronephrosis: Abd/pelvis CT images reviewed by me, showed right sided obstructive uropathy with moderate right hydronephrosis proximal to a 7mm calculus in proximal right ureter. Given IV Rocephin however UA unremarkable, will d/c abx. Consulted urology, Dr. Hammond s/p Cystourethroscopy, Right retrograde pyelogram and Insertion of right ureteral stent. Continue pain control with IV Toradol prn. Stable Acute renal failure: Cr 2.3 upon arrival, previously 1.06 in February2016. Likely secondary to above. Continue IVF. Continue to monitor BMP, improving creatinine down to 1.5 Hypertension: chronic, continue patient's Norvasc. Restart Valsartan with improving LUCERO as above. Monitor BP, adjust antihypertensives as needed. Diabetes: Uncontrolled we will restart Lantus 17u sq hs Monitor Accu-Cheks and cover with SSI. BPH: Chronic, continue patient's dutasteride. Constipation: Continue Naz-Colace 2tabs po bid. Monitor for BM. DVT prophylaxis with SCD. Pt Condition on Discharge: Stable Discharge Disposition: Discharge Home Discharge Time: <= 30 minutes Discharge Instructions DIET: Follow Instructions for: Diabetic Diet Activities you can perform: Regular-No Restrictions Activities to Avoid: Driving Follow up Referrals: PCP Follow-up - 1 Week Urology - 1 Week New Medications: Tamsulosin (Flomax) 0.4 Mg Cap 0.4 MG PO DAILY Urinary Symptom Managemen #30 CAP Continued Medications: Amlodipine (Norvasc) 2.5 Mg Tab 2.5 MG PO DAILY Blood Pressure Management #30 Ref 0 TAB Aspirin (Aspirin Low Dose) 81 Mg Chew 81 MG CHEW DAILY Ref 0 TAB Cholecalciferol (Vitamin D3) 5,000 Unit Chew 5000 UNITS CHEW DAILY Nutritional Supplement #1 Ref 0 BOTTLE Dutasteride (Avodart) 0.5 Mg Cap 0.5 MG PO DAILY Manage Prostate Problems #30 Ref [address] (Nexium) 40 Mg Capdr 40 MG PO DAILY Ref 0 CAP Insulin Glargine Inj (Lantus Inj) 1,000 Unit/10 Ml Vial 17 UNITS SQ HS Blood Sugar Management Ref 0 VIAL Pravastatin (Pravastatin) 20 Mg Tab 20 MG PO DAILY Cholesterol Management #30 Ref 0 TAB Valsartan (Diovan) 160 Mg Tab 160 MG PO DAILY #30 Ref 0 TAB Vitamin E (E1000) 1,000 Unit Cap Nash Buck MD Aug 10, 2016 11:49
[2016-08-10 12:00] VITALS: BP 125/58; PULSE 89; RESP 18; TEMP 96.3; O2SAT 98
[2016-08-10] MEDS ORDERED: INSULIN DETEMIR 100 UNITS/ML VIAL SQ SCH (12:30)
[2016-08-10] MEDS ORDERED: INSULIN GLARGINE 1,000 UNITS/10 ML VIAL SQ SCH (21:00)
[2016-08-11] MEDS ORDERED: VALSARTAN 160 MG TAB PO SCH (09:00)
== END 2016-08-10 16:06 | disposition home or self-care (01) | DRG 694 ==
LOC: PHED 16:20 → PHEDA 19:18 → OBSVTOIN 19:28 → NEPGCP 22:19 → N07B 08-09 18:54
PROVIDERS: ADMIT Internal Medicine; ATTEND Internal Medicine
PROC: BT1DZZZ Fluoroscopy of Right Kidney, Ureter and Bladder (ICD-10-PCS; 2016-08-09)
PROC: 0T768DZ Dilation of Right Ureter with Intraluminal Device, Via Natural or Artificial Opening Endoscopic (ICD-10-PCS; principal; 2016-08-09 14:45)
DX: N13.2 Hydronephrosis with renal and ureteral calculous obstruction (principal); N17.9 Acute kidney failure, unspecified; E11.65 Type 2 diabetes mellitus with hyperglycemia; E11.22 Type 2 diabetes mellitus with diabetic chronic kidney disease; N13.9 Obstructive and reflux uropathy, unspecified; K21.9 Gastro-esophageal reflux disease without esophagitis; K59.00 Constipation, unspecified; N40.0 Benign prostatic hyperplasia without lower urinary tract symptoms; I12.9 Hypertensive chronic kidney disease with stage 1 through stage 4 chronic kidney disease, or unspecified chronic kidney disease; N18.9 Chronic kidney disease, unspecified; G47.30 Sleep apnea, unspecified; Z79.4 Long term (current) use of insulin; Z87.442 Personal history of urinary calculi; Z88.5 Allergy status to narcotic agent
CPT/HCPCS: 74176; 74420; 80048; 80053; 81001; 82948; 83690; 83735; 85025; 85610; 85730; 93005; 96361; 96374; 96375; 99283; C1769; C2617; G8987-GP; G8988-GP; J0696; J1815; J1885; J2405; J3010; J7030; Q9967

== ENCOUNTER → 2016-08-16 | Outpatient (CLI) | payer MEDICARE, BC ==
[~2016-08-16] MED LIST changes: +ACET325T PO; +DEXT1SUS PO; +JANU50TA8 PO; +OSEL75 PO; +TAMS5CAP PO
[2016-08-16 11:56] LABS: AUTOMATED NEUTROPHIL # 5.3 TH/MM3 (1.8-7.7); BASOPHIL # 0.1 TH/MM3 (0-0.2); BASOPHIL % 0.7 % (0.0-2.0); EOSINOPHIL # 0.3 TH/MM3 (0-0.4); EOSINOPHIL % 3.8 % (0.0-4.0); HEMATOCRIT 35.4 % (39.0-51.0); HEMO FLAGS DIFF FINAL; LYMPH % 16.6 % (9.0-44.0); LYMPHOCYTE # 1.2 TH/MM3 (1.0-4.8); MEAN CELL VOLUME 86.7 FL (80.0-100.0); MEAN CORPUSCULAR HEMOGLOBIN 30.5 PG (27.0-34.0); MEAN CORPUSCULAR HGB CONC 35.1 % (32.0-36.0); MONO % 7.8 % (0.0-8.0); NEUT % 71.1 % (16.0-70.0); PLATELET COUNT 214 TH/MM3 (150-450); RED BLOOD COUNT 4.09 MIL/MM3 (4.50-5.90); RED CELL DISTRIBUTION WIDTH 12.4 % (11.6-17.2); WHITE BLOOD COUNT 7.4 TH/MM3 (4.0-11.0)
[2016-08-16 12:10] LABS: BICARBONATE 29.7 MEQ/L (21.0-32.0); POTASSIUM 4.1 MEQ/L (3.5-5.1)
== END ==
LOC: PLAB 09:45
PROVIDERS: ATTEND Family Medicine
DX: D50.9 Iron deficiency anemia, unspecified (principal); R31.0 Gross hematuria; N20.0 Calculus of kidney; N13.9 Obstructive and reflux uropathy, unspecified
CPT/HCPCS: 36415; 80048; 85025

== ENCOUNTER → 2016-09-04 | Outpatient (CLI) | payer MEDICARE, BC | LOC: PLAB 14:51 | PROVIDERS: ATTEND Urology | DX: Z12.5 Encounter for screening for malignant neoplasm of prostate (principal) | CPT/HCPCS: 36415; G0103 ==

== ENCOUNTER 2016-12-03 03:38 | Emergency (ER) | payer MEDICARE, BC ==
[~2016-12-03] VITALS: Ht 152.4 cm; Wt 75.0 kg
[~2016-12-03 03:38] MED LIST changes: -ACET325T PO; -DEXT1SUS PO; -JANU50TA8 PO; -OSEL75 PO
[2016-12-03 03:43] VITALS: BP 148/78; PULSE 102; RESP 18; TEMP 98.3; O2SAT 96
[2016-12-03] MEDS ORDERED: JANU50TA8 PO (03:50)
[2016-12-03] MEDS ORDERED: LANTUS2P SQ (03:50)
[2016-12-03 03:51] VITALS: BP 148/78; PULSE 102; RESP 18; TEMP 98.3; O2SAT 96
--- NOTE | 2016-12-03 04:12 | PD ---
HPI Chief Complaint: Cold / Flu Symptoms Time Seen by Provider: 03:56 Travel History International Travel<30 days: No Contact w/Intl Traveler<30days: No Traveled to known affect area: No History of Present Illness HPI 81yo M with PMH of HTN, DM, BPH presents to the ED with c/o throat pain for few days along with nasal congestion and cough. States throat hurts when he coughs. Denies any fever, drooling, change of voice, chest pain, sob, n/v, abdominal pain, focal weakness or numbness. Pt took robitussin with little relief. States has bronchitis. Denies cig smoking. 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) Arthritis: Yes Asthma: No Autoimmune Disease: No Blood Disorders: No Heart Rhythm Problems: No Cancer: No Cardiovascular Problems: Yes (PERICARDITIS 2011) High Cholesterol: No Chemotherapy: No Chest Pain: No Congestive Heart Failure: No COPD: No Cerebrovascular Accident: No Diabetes: Yes Patient Takes Glucophage: Yes Diminished Hearing: Yes (BILAT) Endocrine: Yes Gastrointestinal Disorders: Yes (ACID REFLUX ) GERD: Yes Glaucoma: No Genitourinary: Yes (ENLARGED PROSTATE; POST TURP; KIDNEY STONES ) Headaches: No Hepatitis: No Hiatal Hernia: No Hypertension: Yes Immune Disorder: No Implanted Vascular Access Dvce: Yes (TITANIUM LEFT KNEE) Kidney Stones: Yes Medical other: Yes (RIGHT RENAL ARTERY ANEURYSM; ACUTE GASTRITIS 2009) Musculoskeletal: Yes (OSTEOARTHRITIS; RIGHT HAMSTRING PAIN; RIGHT KNEE PAIN) Neurologic: Yes (OCCAS VERTIGO ) Psychiatric: No Reproductive: No Respiratory: No Immunizations Current: Yes Myocardial Infarction: No Radiation Therapy: No Renal Failure: No Seizures: No Sleep Apnea: Yes Thyroid Disease: No Ulcer: Yes Tetanus Vaccination: < 5 Years PNEUMOCCOCAL Vaccine (Year): 2009 Past Surgical History Abdominal Surgery: Yes (APPY; CHOLECY ) AICD: No Appendectomy: Yes Body Medical Devices: LEFT KNEE Cardiac Surgery: No Cholecystectomy: Yes Ear Surgery: No Endocrine Surgery: No Eye Surgery: No Genitourinary Surgery: Yes (LITHOTRIPSY X 3; TURP 2002) Joint Replacement: Yes (LEFT KNEE) Neurologic Surgery: No Oral Surgery: Yes (PERIDONTAL SURGERY ) Pacemaker: No Thoracic Surgery: No Other Surgery: Yes Social History Alcohol Use: No Tobacco Use: No Substance Use: No Allergies-Medications (Allergen,Severity, Reaction): Coded Allergies: Lortab (Verified Allergy, Severe, Nausea/Vomiting, 12/03/16) NAUSEA/VOMITTING Percocet (Verified Allergy, Mild, 12/03/16) NAUSEA/VOMITTING Codeine (Verified Adverse Reaction, Intermediate, Nausea/Vomiting, 12/03/16) Reported Meds & Prescriptions Reported Meds & Active Scripts Active Flomax (Tamsulosin HCl) 0.4 Mg Cap 0.4 Mg PO DAILY Reported Janumet (Sitagliptin-Metformin) 50-1,000 Mg Tab 1 Tab PO BID Lantus Inj (Insulin Glargine) 1,000 Unit/10 Ml Vial 34 Units SQ HS E1000 (Vitamin E) 1,000 Unit Cap Vitamin D3 (Cholecalciferol) 5,000 Unit Chew 5,000 Units CHEW DAILY Lantus Inj (Insulin Glargine) 1,000 Unit/10 Ml Vial 17 Units SQ HS Aspirin Low Dose (Aspirin) 81 Mg Chew 81 Mg CHEW DAILY Pravastatin 20 Mg Tab 20 Mg PO DAILY Nexium (Esomeprazole DR) 40 Mg Capdr 40 Mg PO DAILY Avodart (Dutasteride) 0.5 Mg Cap 0.5 Mg PO DAILY Diovan (Valsartan) 160 Mg Tab 160 Mg PO DAILY Norvasc (Amlodipine Besylate) 2.5 Mg Tab 2.5 Mg PO DAILY Review of Systems Except as stated in HPI: all other systems reviewed are Neg Physical Exam Narrative GENERAL: 81yo M not in distress. SKIN: Focused skin assessment warm/dry. HEAD: Atraumatic. Normocephalic. EYES: Pupils equal and round. No scleral icterus. No injection or drainage. ENT: Throat: Uvula midline. No exudate or erythema. NECK: Trachea midline. No JVD. CARDIOVASCULAR: Regular rate and rhythm. No murmur appreciated. RESPIRATORY: No accessory muscle use. Clear to auscultation. Breath sounds equal bilaterally. GASTROINTESTINAL: Abdomen soft, non-tender, nondistended. MUSCULOSKELETAL: No obvious deformities. No clubbing. No cyanosis. No edema. NEUROLOGICAL: Awake and alert. No obvious cranial nerve deficits. Motor grossly within normal limits. Normal speech. PSYCHIATRIC: Appropriate mood and affect; insight and judgment normal. Data Data Last Documented VS Vital Signs Date Time Temp Pulse Resp B/P Pulse Ox O2 Delivery O2 Flow Rate FiO2 12/03/16 04:59 82 18 96 Room Air 12/03/16 03:51 98.3 148/78 Orders Chest, Single Ap (12/03/16 ) Complete Blood Count With Diff (12/03/16 04:04) Basic Metabolic Panel (Bmp) (12/03/16 04:04) Acetaminophen 650 Mg/20 Ml Liq (Tylenol (12/03/16 04:15) Influenzae A/B Antigen (12/03/16 04:04) Guaifen-Dm 200-20 Mg/10 Ml Liq (Robituss (12/03/16 05:15) Labs Laboratory Tests Test 12/03/16 04:15 White Blood Count 10.4 TH/MM3 Red Blood Count 4.03 MIL/MM3 Hemoglobin 12.1 GM/DL Hematocrit 35.2 % Mean Corpuscular Volume 87.5 FL Mean Corpuscular Hemoglobin 30.0 PG Mean Corpuscular Hemoglobin 34.3 % Concent Red Cell Distribution Width 12.5 % Platelet Count 215 TH/MM3 Mean Platelet Volume 7.1 FL Neutrophils (%) (Auto) 77.2 % Lymphocytes (%) (Auto) 11.5 % Monocytes (%) (Auto) 8.7 % Eosinophils (%) (Auto) 2.3 % Basophils (%) (Auto) 0.3 % Neutrophils # (Auto) 8.1 TH/MM3 Lymphocytes # (Auto) 1.2 TH/MM3 Monocytes # (Auto) 0.9 TH/MM3 Eosinophils # (Auto) 0.2 TH/MM3 Basophils # (Auto) 0.0 TH/MM3 CBC Comment DIFF FINAL Differential Comment Sodium Level 144 MEQ/L Potassium Level 3.9 MEQ/L Chloride Level 106 MEQ/L Carbon Dioxide Level 29.1 MEQ/L Anion Gap 9 MEQ/L Blood Urea Nitrogen 19 MG/DL Creatinine 1.20 MG/DL Estimat Glomerular Filtration 58 ML/MIN Rate Random Glucose 100 MG/DL Calcium Level 9.3 MG/DL MDM Medical Decision Making Medical Screen Exam Complete: Yes Emergency Medical Condition: Yes Interpretation(s) Laboratory Tests Test 12/03/16 04:15 White Blood Count 10.4 TH/MM3 (4.0-11.0) Red Blood Count 4.03 MIL/MM3 (4.50-5.90) Hemoglobin 12.1 GM/DL (13.0-17.0) Hematocrit 35.2 % (39.0-51.0) Mean Corpuscular Volume 87.5 FL (80.0-100.0) Mean Corpuscular Hemoglobin 30.0 PG (27.0-34.0) Mean Corpuscular Hemoglobin 34.3 % Concent (32.0-36.0) Red Cell Distribution Width 12.5 % (11.6-17.2) Platelet Count 215 TH/MM3 (150-450) Mean Platelet Volume 7.1 FL (7.0-11.0) Neutrophils (%) (Auto) 77.2 % (16.0-70.0) Lymphocytes (%) (Auto) 11.5 % (9.0-44.0) Monocytes (%) (Auto) 8.7 % (0.0-8.0) Eosinophils (%) (Auto) 2.3 % (0.0-4.0) Basophils (%) (Auto) 0.3 % (0.0-2.0) Neutrophils # (Auto) 8.1 TH/MM3 (1.8-7.7) Lymphocytes # (Auto) 1.2 TH/MM3 (1.0-4.8) Monocytes # (Auto) 0.9 TH/MM3 (0-0.9) Eosinophils # (Auto) 0.2 TH/MM3 (0-0.4) Basophils # (Auto) 0.0 TH/MM3 (0-0.2) CBC Comment DIFF FINAL Differential Comment Sodium Level 144 MEQ/L (136-145) Potassium Level 3.9 MEQ/L (3.5-5.1) Chloride Level 106 MEQ/L (98-107) Carbon Dioxide Level 29.1 MEQ/L (21.0-32.0) Anion Gap 9 MEQ/L (5-15) Blood Urea Nitrogen 19 MG/DL (7-18) Creatinine 1.20 MG/DL (0.60-1.30) Estimat Glomerular Filtration 58 ML/MIN (>89) Rate Random Glucose 100 MG/DL (74-106) Calcium Level 9.3 MG/DL (8.5-10.1) Differential Diagnosis URI vs. Bronchitis vs. Pneumonia vs. pharyngitis Narrative Course 81yo M well appearing male with URI like symptoms. Pt was initially mildly tachycardic at 102bpm and is about 98bpm in the room. Repeat HR is 82bpm. Labs reviewed, no leukocytosis. H/H low at 12.1/35.2 but this is at baseline. Positive influenza A. Pt given acetaminophen liquid with mild improvement. Pt is tolerating PO and return precautions given. Diagnosis Primary Impression: Influenza A Patient Instructions: General Instructions Departure Forms: Tests/Procedures Additional Instructions: Please follow up with your PMD in 3-7 days. Return to the ED if symptoms worsen. Med/Other Pt SpecificInfo: Prescription(s) given Scripts Acetaminophen 325 Mg [id number] Mg PO Q4-6H PRN (PAIN SCALE 1 TO 4) #20 TAB Ref 0 Prov:Florina Hernandez DO 12/03/16 Dextromethorphan Polistirex Liq (Robitussin 12 Hour Cough Liq)30 Mg/5 Ml Sus10 Ml PO Q12H PRN (COUGH) 7 Days Ref 0 Prov:Florina Hernandez DO 12/03/16 Oseltamivir (Tamiflu)75 Mg Cap75 Mg PO BID 5 Days Ref 0 Prov:Florina Hernandez DO 12/03/16 Disposition: 01 DISCHARGE HOME Condition: Stable Florina Hernandez DO December 03, 2016 04:12
[2016-12-03] MEDS ORDERED: ACETAMINOPHEN 650 MG/20.3 ML UDC PO ONE (04:15)
--- NOTE | 2016-12-03 04:39 | RADHPO ---
EXAM DATE/TIME: 12/03/2016 04:33 [facility] COMPARISON: No previous studies available for comparison. INDICATIONS : Cough x 1 week. MEDICAL HISTORY : None. SURGICAL HISTORY : None. ENCOUNTER: Initial ACUITY: 1 week PAIN SCORE: 3/10 LOCATION: chest FINDINGS: The cardiac silhouette is enlarged in transverse diameter. The aortic knob is prominent with tortuosi ty of the descending thoracic aorta. There is elevation of the left hemidiaphragm. The lungs are free of acute parenchymal opacity. No effusions are identified. CONCLUSION: 1. Cardiomegaly. No acute pulmonary disease. Devin Caro MD on December 03, 2016 at 4:37 Board Certified Radiologist. This report was verified electronically.
[2016-12-03 04:42] LABS: AUTOMATED NEUTROPHIL # 8.1 TH/MM3 (1.8-7.7); BASOPHIL % 0.3 % (0.0-2.0); EOSINOPHIL # 0.2 TH/MM3 (0-0.4); EOSINOPHIL % 2.3 % (0.0-4.0); HEMATOCRIT 35.2 % (39.0-51.0); HEMO FLAGS DIFF FINAL; LYMPH % 11.5 % (9.0-44.0); LYMPHOCYTE # 1.2 TH/MM3 (1.0-4.8); MEAN CELL VOLUME 87.5 FL (80.0-100.0); MEAN CORPUSCULAR HGB CONC 34.3 % (32.0-36.0); MONO % 8.7 % (0.0-8.0); NEUT % 77.2 % (16.0-70.0); PLATELET COUNT 215 TH/MM3 (150-450); RED BLOOD COUNT 4.03 MIL/MM3 (4.50-5.90); RED CELL DISTRIBUTION WIDTH 12.5 % (11.6-17.2); WHITE BLOOD COUNT 10.4 TH/MM3 (4.0-11.0)
[2016-12-03 04:53] LABS: POTASSIUM 3.9 MEQ/L (3.5-5.1)
[2016-12-03 04:56] LABS: BICARBONATE 29.1 MEQ/L (21.0-32.0)
[2016-12-03 04:59] VITALS: PULSE 82; RESP 18; O2SAT 96
[2016-12-03] MEDS ORDERED: guaiFENesin/DEXTROMETHORPHAN 200 MG/20 MG/10 ML CUP PO ONE (05:15)
[2016-12-03] MEDS ORDERED: ACET325T PO (05:20)
[2016-12-03] MEDS ORDERED: DEXT1SUS PO (05:20)
[2016-12-03] MEDS ORDERED: OSEL75 PO (05:20)
== END 2016-12-03 05:28 | disposition home or self-care (01) ==
LOC: PHED 03:38
DX: J09.X2 Influenza due to identified novel influenza A virus with other respiratory manifestations (principal)
CPT/HCPCS: 71010; 80048; 85025; 87804; 99283

== ENCOUNTER → 2017-02-19 | Outpatient (CLI) | payer MEDICARE, BC ==
[~2017-02-19] MED LIST changes: +ACET325T PO; +DEXT1SUS PO; +JANU50TA8 PO; +OSEL75 PO
[2017-02-19 13:15] LABS: BICARBONATE 28.2 MEQ/L (21.0-32.0); POTASSIUM 3.9 MEQ/L (3.5-5.1)
[2017-02-19 13:28] LABS: FREE T3 3.06 PG/ML (2.18-3.98); FREE T4 1.07 NG/DL (0.76-1.46); HDL CHOLESTEROL 36.1 MG/DL (40.0-60.0); INDIRECT BILIRUBIN 0.2 MG/DL (0.0-0.8); TOTAL BILIRUBIN ADULT 0.3 MG/DL (0.2-1.0)
== END ==
LOC: PLAB 09:15
DX: E11.65 Type 2 diabetes mellitus with hyperglycemia (principal); E11.40 Type 2 diabetes mellitus with diabetic neuropathy, unspecified; I10 Essential (primary) hypertension
CPT/HCPCS: 36415; 80048; 80061; 80076; 82024; 82533; 84439; 84443; 84481; 85652

== ENCOUNTER → 2017-05-23 | Outpatient (CLI) | payer MEDICARE, BC ==
[2017-05-23 14:27] LABS: ANION GAP 8 MEQ/L (5-15); BICARBONATE 26.4 MEQ/L (21.0-32.0); BLOOD UREA NITROGEN 22 MG/DL (7-18); CHLORIDE 107 MEQ/L (98-107); GLOMERULAR FILTRATION RATE 67 ML/MIN (>89); GLUCOSE,FASTING 132 MG/DL (74-99); SODIUM (NA) 141 MEQ/L (136-145)
[2017-05-23 16:57] LABS: HEMOGLOBIN A1a 1.8 %; HEMOGLOBIN Ao 79.6 %; HEMOGLOBIN F 3.6 %; HEMOGLOBIN LA1C 2.2 %; HEMOGLOBIN P3 4.3 %
== END ==
LOC: PLAB 07:52
DX: E78.5 Hyperlipidemia, unspecified (principal); E11.65 Type 2 diabetes mellitus with hyperglycemia; E11.40 Type 2 diabetes mellitus with diabetic neuropathy, unspecified; I10 Essential (primary) hypertension
CPT/HCPCS: 36415; 80048; 82043; 83036

== ENCOUNTER → 2017-08-27 | Outpatient (CLI) | payer MEDICARE, BC ==
[~2017-08-27] MED LIST changes: -ASPI81CH37 CHEW; +ASPI81CH6 CHEW
[2017-08-27 10:34] LABS: ALBUMIN 3.5 GM/DL (3.4-5.0); ALT (GPT) 17 U/L (12-78); AST (GOT) 11 U/L (15-37); BICARBONATE 30.3 MEQ/L (21.0-32.0); BLOOD UREA NITROGEN 21 MG/DL (7-18); CALCIUM 9.1 MG/DL (8.5-10.1); CHLORIDE 106 MEQ/L (98-107); CREATININE 1.08 MG/DL (0.60-1.30); GLOMERULAR FILTRATION RATE 65 ML/MIN (>89); GLUCOSE,RANDOM 123 MG/DL (74-106); SODIUM (NA) 142 MEQ/L (136-145)
[2017-08-27 10:37] LABS: ALKALINE PHOSPHATASE 112 U/L (45-117); TOTAL BILIRUBIN ADULT 0.3 MG/DL (0.2-1.0); TOTAL PROTEIN 7.7 GM/DL (6.4-8.2)
[2017-08-27 20:59] LABS: HEMOGLOBIN A1C 8.2 % (4.3-6.0)
== END ==
LOC: PLAB 07:41
DX: E11.65 Type 2 diabetes mellitus with hyperglycemia (principal)
CPT/HCPCS: 36415; 80053; 82043; 83036

== ENCOUNTER → 2017-09-03 | Outpatient (CLI) | payer MEDICARE, BC | LOC: PLAB 06:45 | PROVIDERS: ATTEND Urology | DX: N40.1 Benign prostatic hyperplasia with lower urinary tract symptoms (principal); Z00.00 Encounter for general adult medical examination without abnormal findings | CPT/HCPCS: 36415; 84153 ==

== ENCOUNTER → 2017-11-04 | Outpatient (CLI) | payer MEDICARE, BC ==
[2017-11-04 14:39] LABS: AUTOMATED NEUTROPHIL # 3.8 TH/MM3 (1.8-7.7); BASOPHIL # 0.1 TH/MM3 (0-0.2); EOSINOPHIL # 0.2 TH/MM3 (0-0.4); EOSINOPHIL % 3.3 % (0.0-4.0); HEMATOCRIT 36.7 % (39.0-51.0); HEMOGLOBIN 12.5 GM/DL (13.0-17.0); LYMPH % 23.9 % (9.0-44.0); LYMPHOCYTE # 1.4 TH/MM3 (1.0-4.8); MEAN CELL VOLUME 84.1 FL (80.0-100.0); MEAN CORPUSCULAR HEMOGLOBIN 28.6 PG (27.0-34.0); MEAN PLATELET VOLUME 7.5 FL (7.0-11.0); MONO % 8.4 % (0.0-8.0); MONOCYTE # 0.5 TH/MM3 (0-0.9); NEUT % 63.4 % (16.0-70.0); PLATELET COUNT 196 TH/MM3 (150-450); RED BLOOD COUNT 4.36 MIL/MM3 (4.50-5.90); RED CELL DISTRIBUTION WIDTH 14.7 % (11.6-17.2)
[2017-11-04 14:42] LABS: ALBUMIN 3.8 GM/DL (3.4-5.0); AST (GOT) 20 U/L (15-37); BICARBONATE 26.4 MEQ/L (21.0-32.0); BLOOD UREA NITROGEN 14 MG/DL (7-18); CALCIUM 9.2 MG/DL (8.5-10.1); CHLORIDE 104 MEQ/L (98-107); CREATININE 1.18 MG/DL (0.60-1.30); GLOMERULAR FILTRATION RATE 59 ML/MIN (>89); GLUCOSE,FASTING 154 MG/DL (74-99); SODIUM (NA) 140 MEQ/L (136-145)
[2017-11-04 14:43] LABS: CHOLESTEROL 167 MG/DL (120-200)
[2017-11-04 14:54] LABS: ALKALINE PHOSPHATASE 109 U/L (45-117); ALT (GPT) 21 U/L (12-78); CHOLESTEROL/ HDL RATIO 4.46 RATIO; HDL CHOLESTEROL 37.4 MG/DL (40.0-60.0); LDL CHOLESTEROL 92 MG/DL (0-99); TOTAL BILIRUBIN ADULT 0.3 MG/DL (0.2-1.0); TRIGLYCERIDES 187 MG/DL (42-150)
[2017-11-04 16:50] LABS: HEMOGLOBIN A1C 8.6 % (4.3-6.0)
== END ==
LOC: PLAB 08:57
PROVIDERS: ATTEND Family Medicine
DX: M19.90 Unspecified osteoarthritis, unspecified site (principal); E11.9 Type 2 diabetes mellitus without complications; E78.5 Hyperlipidemia, unspecified; I10 Essential (primary) hypertension
CPT/HCPCS: 36415; 80053; 80061; 83036; 84443; 85025

== ENCOUNTER → 2017-11-22 | Outpatient (CLI) | payer MEDICARE, BC | LOC: PLAB 07:38 | DX: E11.65 Type 2 diabetes mellitus with hyperglycemia (principal) ==